=== PATIENT | female | born 1955 | race African-American/Black ===

== ENCOUNTER 2018-03-20 13:31 | Observation (INO) ==
[2018-03-20] MEDS ORDERED: Acetaminophen/Codeine 300/30 MG Tablet PO ONE (14:27)
[2018-03-20] MEDS ORDERED: Sodium Chlor 0.9% Inj 500 ML IV.SIG ONE (14:27)
--- NOTE | 2018-03-20 14:48 | XR ---
EXAM DATE: 03/20/2018 2:44 PM EDT AGE/SEX: 62 years / Female INDICATIONS: Pain in chest, back and neck for 4 days, general weakness CLINICAL DATA: This is the patient's initial encounter. Patient reports that signs and symptoms have been present for 4 - 6 days and indicates a pain score of 5/10. MEDICAL/SURGICAL HISTORY: None. None. [place] [facility] [place]. . FINDINGS: A single AP view of the chest demonstrates the lungs to be symmetrically aerated without evidence of mass, infiltrate or effusion. The cardiomediastinal contours are unremarkable. Convexity along the a scending aorta. Osseous structures are intact. CONCLUSION: Convexity along the ascending aorta. Could be tortuous thoracic aorta. Cannot exclude aneurysm. Contr asted CT chest may be warranted. Electronically signed by: Guru Mahajan MD 03/20/2018 2:47 PM EDT
[2018-03-20 14:55] LABS: Baso # (Auto) 0.1 th/mm3 (0.0-0.2); Baso % (Auto) 1.2 % (0.0-2.0); Eos % (Auto) 0.5 % (0.0-4.0); Hematocrit 36.8 % (35.0-46.0); Hemoglobin 12.8 gm/dL (11.6-15.3); Lymph # (Auto) 3.4 th/mm3 (1.0-4.8); Lymph % (Auto) 56.4 % (9.0-44.0); Mean Corpuscular HGB Conc 34.8 % (32.0-36.0); Mean Corpuscular Hemoglobin 31.2 pg (27.0-34.0); Mean Corpuscular Volume 89.6 fL (80.0-100.0); Mean Platelet Volume 7.4 fL (7.0-11.0); Mono # (Auto) 0.3 th/mm3 (0.0-0.9); Mono % (Auto) 5.1 % (0.0-8.0); Neut # (Auto) 2.2 th/mm3 (1.8-7.7); Neut % (Auto) 36.8 % (16.0-70.0); Platelet Count 308 th/mm3 (150-450); Red Blood Count 4.11 mil/mm3 (4.00-5.30); Red Cell Distribution Width 13.6 % (11.6-17.2); White Blood Count 5.9 th/mm3 (4.0-11.0)
--- NOTE | 2018-03-20 15:00 | ED ---
HPI General Chief Complaint: Chest Pain Stated Complaint: General Weakness Time Seen by Provider: 03/20/18 13:52 Source: patient Mode of arrival: ambulatory Limitations: no limitations History of Present Illness HPI narrative: Patient is a 62-year-old female presenting to emerge from for evaluation of chest pain. Patient states her symptoms started Monday when she was walking on the street, she states she became very hot and started perspiring. She walked across the street to the bus stop and sit down. She got on the bus and the hr business partner gave her water and turned the air down. Chest pain persisted, patient did not seek medical attention at that time. She states that she went home he continued to drink water. She reports the chest pain is midsternal, no radiation. She reports that her legs feel weak. She states that she tried to lay hands on herself like she tells other people to do to heal herself but this did not improve her symptoms. Patient states that she has been able to maneuver in the spirit world but the leg weakness is impairing her movement in this world. Patient denies any nausea, vomiting, fever, chills , nasal congestion, cough, abdominal pain. She currently reports the chest pain is a 4 out of 10, she denies shortness of breath but states her breathing is off. Patient's past medical history is significant for toxic water poisoning at [facility] 30 years ago. Patient states this is still affecting her grandchildren. complaint: chest pain Complete Quality Measures for STEMI Alert Patients STEMI Alert: No Onset (ago): day(s) (4) Duration: constant Onset: during exertion Pain location: substernal Severity: moderate Severity scale (1-10): 4 Quality: aching Pain radiation: none Relieving factors: nothing Exacerbating factors: nothing Associated symptoms: diaphoresis Treatments prior to arrival chest pain: none Related Data On Oral Contraceptives: No Home Medications Medication Instructions Recorded Confirmed No Known Home Medications 03/20/18 03/20/18 Allergies Allergy/AdvReac Type Severity Reaction Status Date / Time aspirin Allergy Severe RASH Unverified 09/12/17 03:29 amoxicillin AdvReac Intermediate Diarrhea Unverified 09/12/17 03:29 Review of Systems ROS: all other systems reviewed are negative [facility] Medical History Medical History Arthritis (Acute) Ataxia (Acute) Chronic back pain (Acute) Head injury (Acute) Hypertension (Acute) Hypokalemia (Acute) Renal calculi (Acute) Seizure disorder (Acute) Surgical History Surgical History H/O tubal ligation (Acute) History of 2 sections (Acute) Social History Social History Substance History: No History of Abuse Second Hand Smoke Exposure: No Smoking Status: Current every day smoker Tobacco Type: Cigarettes How Often Do You Have a Drink Containing Alcohol: Never Recent Travel in [facility] within the Last 8 Weeks: No Recent Out of Country Travel within the Last 8 Weeks: No Immunization History Tetanus Immunization: Unsure Exam Narrative Exam Narrative: GENERAL: Thin, well-developed, alert -[place] female. Presenting in no acute distress. SKIN: Focused skin assessment warm/dry. HEAD: Atraumatic. Normocephalic. EYES: Pupils equal and round. No scleral icterus. No injection or drainage. ENT: No nasal bleeding or discharge. Mucous membranes pink and moist. NECK: Trachea midline. No JVD. CARDIOVASCULAR: Regular rate and rhythm. No murmur appreciated. RESPIRATORY: No accessory muscle use. Clear to auscultation. Breath sounds equal bilaterally. GASTROINTESTINAL: Abdomen soft, non-tender, nondistended. Hepatic and splenic margins not palpable. MUSCULOSKELETAL: No obvious deformities. No clubbing. No cyanosis. No edema. NEUROLOGICAL: Awake and alert. No obvious cranial nerve deficits. Motor grossly within normal limits. Normal speech. PSYCHIATRIC: Appropriate mood and affect; insight and judgment normal. Course Initial Documented Vital Signs Temperature 98.4 F 03/20/18 13:40 Pulse Rate 87 03/20/18 13:40 Respiratory Rate 18 03/20/18 13:40 Blood Pressure 164/83 H 03/20/18 13:40 Pulse Oximetry 99 03/20/18 13:40 Last Documented Vital Signs Temperature 97.8 F 03/21/18 04:00 Pulse Rate 64 03/21/18 04:00 Respiratory Rate 19 03/21/18 04:00 Blood Pressure 112/68 03/21/18 04:00 Pulse Oximetry 97 03/21/18 04:42 Medical Decision Making MDM Narrative Medical decision making narrative: Patient is a 62-year-old female presenting for evaluation of chest pain and weakness. Patient's vital signs are stable, labs and imaging ordered and pending. Patient was placed on telemetry monitoring continuous pulse oximetry. EKG was reviewed by my attending physician. It shows sinus rhythm with short NH interval, nonspecific T-wave abnormality. No STEMI. Labs reviewed, potassium level 3.1, oral replacement ordered. Cardiac enzymes are negative [address] a of the aorta shows an aortic aneurysm, no dissection. Patient will be placed in chest pain center for further evaluation. Patient is agreeable to plan. Medical Screen Exam Complete: Yes Emergency Medical Condition: Yes Differential Diagnosis Differential Diagnosis: ACS versus metabolic abnormality versus pneumonia versus [place] versus other Medical Records Medical records reviewed: Yes I reviewed the patient's medical records. Lab Data Lab results reviewed: Yes I reviewed the patient's lab results. Result diagrams: 03/20/18 14:30 03/20/18 14:30 Lab Results 03/20/18 03/20/18 03/20/18 Range/Units 14:30 14:30 14:30 WBC 5.9 (4.0-11.0) th/mm3 RBC 4.11 (4.00-5.30) mil/mm3 Hgb 12.8 (11.6-15.3) gm/dL Hct 36.8 (35.0-46.0) % MCV 89.6 (80.0-100.0) fL MCH 31.2 (27.0-34.0) pg MCHC 34.8 (32.0-36.0) % RDW 13.6 (11.6-17.2) % Plt Count 308 (150-450) th/mm3 MPV 7.4 (7.0-11.0) fL Neut % (Auto) 36.8 (16.0-70.0) % Lymph % (Auto) 56.4 H (9.0-44.0) % Bureau % (Auto) 5.1 (0.0-8.0) % Eos % (Auto) 0.5 (0.0-4.0) % Baso % (Auto) 1.2 (0.0-2.0) % Neut # (Auto) 2.2 (1.8-7.7) th/mm3 Lymph # (Auto) 3.4 (1.0-4.8) th/mm3 Bureau # (Auto) 0.3 (0.0-0.9) th/mm3 Eos # (Auto) 0.0 (0.0-0.4) th/mm3 Baso # (Auto) 0.1 (0.0-0.2) th/mm3 WBC Differential . Differential Comment Auto diff final PT 10.6 (9.8-11.6) sec INR 1.0 Ratio APTT 25.0 (24.3-30.1) sec Sodium 143 (136-145) meq/L Potassium 3.1 L (3.5-5.1) meq/L Chloride 106 (98-107) meq/L Carbon Dioxide 27.2 (21.0-32.0) meq/L Anion Gap 10 (5-15) meq/L BUN 7 (7-18) mg/dL Creatinine 0.68 (0.50-1.00) mg/dL Estimated GFR Greater than 89 (>89) mL/min Random Glucose 84 (74-106) mg/dL Calcium 9.0 (8.5-10.1) mg/dL Magnesium (1.5-2.5) mg/dL Total Bilirubin 0.3 (0.2-1.0) mg/dL AST 16 (15-37) U/L ALT 17 (10-53) U/L Alkaline Phosphatase 88 (45-117) U/L Total Creatine Kinase (26-192) U/L CK-MB (CK-2) (0.5-3.6) ng/mL Troponin I Less than 0.02 L (0.02-0.05) ng/mL Total Protein 7.7 (6.4-8.2) g/dL Albumin 3.7 (3.4-5.0) g/dL Lipase 79 (73-393) U/L Urine Color (Yellw/Straw) Urine Clarity (Clear) Urine pH (5.0-8.5) Ur Specific Hazel (1.002-1.035) Urine Protein (Neg-Trace) mg/dL Urine Glucose (UA) (Negative) mg/dL Urine Ketones (Negative) mg/dL Urine Occult Blood (Negative) Urine Nitrate (Negative) Urine Bilirubin (Negative) Urine Urobilinogen (Less than 2) mg/dL Ur Leukocyte Esterase (Negative) Urine RBC (0-3) /hpf Urine WBC (0-5) /hpf Ur Squamous Epith Cells (0-5) /hpf Micro UA Comment Ur Microscopic Review Urine Culture Comments 03/20/18 03/20/18 03/20/18 Range/Units 14:30 17:50 18:40 WBC (4.0-11.0) th/mm3 RBC (4.00-5.30) mil/mm3 Hgb (11.6-15.3) gm/dL Hct (35.0-46.0) % MCV (80.0-100.0) fL MCH (27.0-34.0) pg MCHC (32.0-36.0) % RDW (11.6-17.2) % Plt Count (150-450) th/mm3 MPV (7.0-11.0) fL Neut % (Auto) (16.0-70.0) % Lymph % (Auto) (9.0-44.0) % Bureau % (Auto) (0.0-8.0) % Eos % (Auto) (0.0-4.0) % Baso % (Auto) (0.0-2.0) % Neut # (Auto) (1.8-7.7) th/mm3 Lymph # (Auto) (1.0-4.8) th/mm3 Bureau # (Auto) (0.0-0.9) th/mm3 Eos # (Auto) (0.0-0.4) th/mm3 Baso # (Auto) (0.0-0.2) th/mm3 WBC Differential Differential Comment PT (9.8-11.6) sec INR Ratio APTT (24.3-30.1) sec Sodium (136-145) meq/L Potassium (3.5-5.1) meq/L Chloride (98-107) meq/L Carbon Dioxide (21.0-32.0) meq/L Anion Gap (5-15) meq/L BUN (7-18) mg/dL Creatinine (0.50-1.00) mg/dL Estimated GFR (>89) mL/min Random Glucose (74-106) mg/dL Calcium (8.5-10.1) mg/dL Magnesium 2.1 (1.5-2.5) mg/dL Total Bilirubin (0.2-1.0) mg/dL AST (15-37) U/L ALT (10-53) U/L Alkaline Phosphatase (45-117) U/L Total Creatine Kinase 146 134 (26-192) U/L CK-MB (CK-2) 1.5 (0.5-3.6) ng/mL Troponin I 0.02 (0.02-0.05) ng/mL Total Protein (6.4-8.2) g/dL Albumin (3.4-5.0) g/dL Lipase (73-393) U/L Urine Color Colorless (Yellw/Straw) Urine Clarity Clear (Clear) Urine pH 7.0 (5.0-8.5) Ur Specific Hazel 1.033 (1.002-1.035) Urine Protein Negative (Neg-Trace) mg/dL Urine Glucose (UA) Negative (Negative) mg/dL Urine Ketones Negative (Negative) mg/dL Urine Occult Blood Small H (Negative) Urine Nitrate Negative (Negative) Urine Bilirubin Negative (Negative) Urine Urobilinogen Less than 2 (Less than 2) mg/dL Ur Leukocyte Esterase Negative (Negative) Urine RBC 1 (0-3) /hpf Urine WBC Less than 1 (0-5) /hpf Ur Squamous Epith Cells <1 (0-5) /hpf Micro UA Comment Culture not ind Ur Microscopic Review Not Reportable Urine Culture Comments Culture not ind 03/20/18 Range/Units 22:00 WBC (4.0-11.0) th/mm3 RBC (4.00-5.30) mil/mm3 Hgb (11.6-15.3) gm/dL Hct (35.0-46.0) % MCV (80.0-100.0) fL MCH (27.0-34.0) pg MCHC (32.0-36.0) % RDW (11.6-17.2) % Plt Count (150-450) th/mm3 MPV (7.0-11.0) fL Neut % (Auto) (16.0-70.0) % Lymph % (Auto) (9.0-44.0) % Bureau % (Auto) (0.0-8.0) % Eos % (Auto) (0.0-4.0) % Baso % (Auto) (0.0-2.0) % Neut # (Auto) (1.8-7.7) th/mm3 Lymph # (Auto) (1.0-4.8) th/mm3 Bureau # (Auto) (0.0-0.9) th/mm3 Eos # (Auto) (0.0-0.4) th/mm3 Baso # (Auto) (0.0-0.2) th/mm3 WBC Differential Differential Comment PT (9.8-11.6) sec INR Ratio APTT (24.3-30.1) sec Sodium (136-145) meq/L Potassium (3.5-5.1) meq/L Chloride (98-107) meq/L Carbon Dioxide (21.0-32.0) meq/L Anion Gap (5-15) meq/L BUN (7-18) mg/dL Creatinine (0.50-1.00) mg/dL Estimated GFR (>89) mL/min Random Glucose (74-106) mg/dL Calcium (8.5-10.1) mg/dL Magnesium (1.5-2.5) mg/dL Total Bilirubin (0.2-1.0) mg/dL AST (15-37) U/L ALT (10-53) U/L Alkaline Phosphatase (45-117) U/L Total Creatine Kinase 144 (26-192) U/L CK-MB (CK-2) (0.5-3.6) ng/mL Troponin I 0.03 (0.02-0.05) ng/mL Total Protein (6.4-8.2) g/dL Albumin (3.4-5.0) g/dL Lipase (73-393) U/L Urine Color (Yellw/Straw) Urine Clarity (Clear) Urine pH (5.0-8.5) Ur Specific Hazel (1.002-1.035) Urine Protein (Neg-Trace) mg/dL Urine Glucose (UA) (Negative) mg/dL Urine Ketones (Negative) mg/dL Urine Occult Blood (Negative) Urine Nitrate (Negative) Urine Bilirubin (Negative) Urine Urobilinogen (Less than 2) mg/dL Ur Leukocyte Esterase (Negative) Urine RBC (0-3) /hpf Urine WBC (0-5) /hpf Ur Squamous Epith Cells (0-5) /hpf Micro UA Comment Ur Microscopic Review Urine Culture Comments Imaging Data Radiologist's impression: Chest X-Ray 03/20/18 14:27 CONCLUSION: Convexity along the ascending aorta. Could be tortuous thoracic aorta. Cannot exclude aneurysm. Contrasted CT chest may be warranted. Thoracic Aorta CT 03/20/18 14:49 CONCLUSION: 1. Mild aneurysmal dilatation of the aspect ascending thoracic aorta measuring 4.0 x 3.9 cm. 2. Atherosclerotic changes are seen throughout the thoracic and abdominal aorta. No evidence of aortic dissection. 3. Multiple gallstones in the gallbladder. No biliary tract obstruction. Discharge Plan Discharge Disposition Patient Disposition: 30 Still Patient Discharge Condition Condition: Good Discharge Details Diagnosis: Atypical chest pain, Aortic aneurysm Physicians Team ED Provider: Magaly Parham ED Midlevel Provider: Brandi Thomas Primary Care Provider: Primary Care Keysha Branch Attending Provider: Gaye Ny Other Providers: [facility],Insurance Status ED Status: Left Department Discharge Information Discharge Date/Time: 03/20/18 19:06
[2018-03-20 15:13] LABS: Prothrombin Time 10.6 sec (9.8-11.6)
[2018-03-20 15:46] LABS: Magnesium 2.1 mg/dL (1.5-2.5)
[2018-03-20 15:47] LABS: Alanine Aminotransferase 17 U/L (10-53); Albumin 3.7 g/dL (3.4-5.0); Anion Gap 10 meq/L (5-15); Aspartate Aminotransferase 16 U/L (15-37); Blood Urea Nitrogen 7 mg/dL (7-18); Carbon Dioxide 27.2 meq/L (21.0-32.0); Chloride 106 meq/L (98-107); Glomerular Filtration Rate Greater Than 89 mL/min (>89); Glucose,Random 84 mg/dL (74-106); Lipase 79 U/L (73-393); Potassium 3.1 meq/L (3.5-5.1); Sodium 143 meq/L (136-145)
[2018-03-20 15:48] LABS: Creatine Kinase 146 U/L (26-192)
[2018-03-20 15:50] LABS: Alkaline Phosphatase 88 U/L (45-117); Total Protein 7.7 g/dL (6.4-8.2)
[2018-03-20 16:13] LABS: Creatine Kinase MB 1.5 ng/mL (0.5-3.6)
--- NOTE | 2018-03-20 16:57 | CT ---
EXAM DATE: 03/20/2018 4:51 PM EDT AGE/SEX: 62 years / Female INDICATIONS: Chest pain and Dizziness light headedness since Monday. CLINICAL DATA: This is the patient's initial encounter. Patient reports that signs and symptoms have been present for 4 - 6 days and indicates a pain score of 5/10. MEDICAL/SURGICAL HISTORY: None. None. RADIATION DOSE: 14.12 CTDI (mGy) COMPARISON: No prior exams available for comparison. No external comparison. TECHNIQUE: Volumetric scanning was performed using a multi-row detector CT scanner during bolus infu aaliyah of omni ml Omnipaque 350 (iohexol) nonionic water-soluble contrast as a single exam dose. The data was post processed with a variety of visualization algorithms including full volume maximum inte nsity projection, multi-planar sliding thin slab reformation, curved planar reformation, and surface rendering techniques. Using automated exposure control and adjustment of the mA and/or kV according to patient size, radiation dose was kept as low as reasonably achievable to obtain optimal diagnostic quality images. DICOM format image data is available electronically for review and comparison. FINDINGS: Lungs: There is no consolidation or pneumothorax. No concerning pulmonary nodule is visualized. No pleural fluid is present. Mediastinum: No abnormally enlarged lymph nodes by CT criteria. No axillary or hilar abnormalities a re identified. Abdomen: The liver and spleen are free of focal defects. Multiple stones in the gallbladder. No surr ounding inflammatory changes. The pancreas demonstrate no abnormality. The adrenal glands are normal. The kidneys demonstrate no evidence of solid renal mass or hydronephrosis. No free fluid or abdomina l masses are identified. No para-aortic adenopathy is seen. Pelvis: No evidence of free fluid or pelvic mass. No abnormally enlarged inguinal or retroperitoneal lymph nodes are present. The bladder is unremarkable. Thoracic Aorta: There is some atherosclerotic changes of the thoracic aorta. Normal three-vessel arc h with no evidence of any focal stenosis. There is some mild aneurysmal dilatation of the asthenic th oracic aorta measuring 4.0 x 3.9 cm. There is no evidence of dissection. Abdominal Aorta: There is atherosclerotic changes throughout the abdominal aorta. No aortic dissecti on. No significant aneurysmal dilatation. The SMA, celiac and renal arteries are patent without evide nce of any focal or high-grade stenosis. Pelvic Vessels: There are atherosclerotic changes of the pelvic vessels. CONCLUSION: 1. Mild aneurysmal dilatation of the aspect ascending thoracic aorta measuring 4.0 x 3.9 cm. 2. Atherosclerotic changes are seen throughout the thoracic and abdominal aorta. No evidence of aort ic dissection. 3. Multiple gallstones in the gallbladder. No biliary tract obstruction. Electronically signed by: Jan Lopez MD 03/20/2018 4:56 PM EDT
[2018-03-20 18:27] LABS: Bilirubin,Urine Negative (Negative); Clarity,Urine Clear (Clear); Color,Urine Colorless (Yellw/Straw); Glucose,Urine (UA) Negative (Negative); Leukocyte Esterase,Urine Negative (Negative); Nitrite,Urine Negative (Negative); Specific Gravity,Urine 1.033 (1.002-1.035); Squamous Epithelial Cell,Urine <1 /hpf (0-5)
[2018-03-20] MEDS: Lisinopril 10 MG Tablet PO SCH (19:48)
[2018-03-20] MEDS: Morphine Inj 4 MG/ML Vial IV.PUSH PRN ×2 (19:49→23:29)
[2018-03-20 20:07] LABS: Troponin I 0.02 ng/mL (0.02-0.05)
[2018-03-20 23:27] LABS: Troponin I 0.03 ng/mL (0.02-0.05)
[2018-03-21] MEDS: Morphine Inj 4 MG/ML Vial IV.PUSH PRN (03:52)
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
[2018-03-21] MEDS ORDERED: Acetaminophen/Codeine 300/30 MG Tablet PO ONE (07:58)
[2018-03-21] MEDS ORDERED: Regadenoson Inj 0.4 MG/5 ML Syringe IV.PUSH ONE (09:13)
[2018-03-21] MEDS: Lisinopril 10 MG Tablet PO SCH (10:57)
--- NOTE | 2018-03-21 11:08 | NM ---
EXAM DATE: 03/21/2018 10:42 AM EDT AGE/SEX: 62 years / Female INDICATIONS:Angina. . Mid chest pain for one day. CLINICAL DATA: This is the patient's initial encounter. Patient reports that signs and symptoms have been present for 1 day and indicates a pain score of 2/10. MEDICAL/SURGICAL HISTORY: None. None. COMPARISON: No prior exams available for comparison. No external comparison. DOSE: 8.7 mCi Tc 99m Myoview at rest 26.3 mCi [id number] at stress 0.4 mg Lexiscan STRESS SYMPTOMS: None. EJECTION FRACTION: 70 % TECHNIQUE: The patient underwent pharmacologic stress with infusion of prescribed dose. Continuous ECG tracing was monitored during stress. Gated SPECT imaging was performed after stress and conventi onal SPECT imaging was performed at rest. The examination was performed on a SPECT/CT scanner, both attenuation and non-corrected datasets were reviewed. FINDINGS: Distribution: The maximum perfused segment at stress is in the wall. Perfusion Study: The pattern of perfusion at stress is within normal limits. No reversible perfus ion defects are identified. There is a small fixed perfusion defect at the apex identified. Gated Study: There are intact wall motion and wall thickening without hypokinetic or dyskinetic segm ents. The ejection fraction is calculated at 70%. RISK CATEGORY: Low (<1% Annual Motality Rate) CONCLUSION: 1. No definite reversible perfusion defects are identified to suggest stress-induced myocardial isch emia. Electronically signed by: Rich Pastrana MD 03/21/2018 11:07 AM EDT
--- NOTE | 2018-03-21 12:53 | ECG ---
Date Performed: 03/20/2018 Time Performed: 18:40:39 PTAGE: 62 years EKG: Sinus rhythm MODERATE T-WAVE ABNORMALITY, CONSIDER ANTERIOR ISCHEMIA ABNORMAL ECG PREVIOUS TRACING : 03/20/2018 14.03 Since previous tracing, no significant change noted DOCTOR: Win Rodriguez Interpretating Date/Time 03/21/2018 12:52:43
--- NOTE | 2018-03-21 12:53 | ECG ---
Date Performed: 03/20/2018 Time Performed: 21:43:43 PTAGE: 62 years EKG: Sinus rhythm NORMAL ECG PREVIOUS TRACING : 03/20/2018 19.24 Since previous tracing, no significant change noted DOCTOR: Win Rodriguez Interpretating Date/Time 03/21/2018 12:52:11
--- NOTE | 2018-03-21 12:53 | ECG ---
Date Performed: 03/20/2018 Time Performed: 19:24:08 PTAGE: 62 years EKG: Sinus rhythm MODERATE T-WAVE ABNORMALITY, CONSIDER ANTERIOR ISCHEMIA ABNORMAL ECG PREVIOUS TRACING : 03/20/2018 14.03 Since previous tracing, no significant change noted DOCTOR: Win Rodriguez Interpretating Date/Time 03/21/2018 12:52:28
--- NOTE | 2018-03-21 12:56 | ECG ---
Date Performed: 03/20/2018 Time Performed: 14:03:40 PTAGE: 62 years EKG: Sinus rhythm WITH SHORT MD INTERVAL NONSPECIFIC T-WAVE ABNORMALITY BORDERLINE ECG NO PREVIOUS TRACING DOCTOR: Win Rodriguez Interpretating Date/Time 03/22/2018 06:47:52
--- NOTE | 2018-03-21 13:00 | TR ---
Date Performed: 03/21/2018 Time Performed: 09:18:47 DOCTOR: Win Rodriguez DRUG LIST: CLINICAL HISTORY: REASON FOR TEST: REASON FOR ENDING: OBSERVATION: CONCLUSION: COMMENTS: Lexiscan stress test was performed under standard four minute protocol. Radionuclide was injected one minute prior to ending the test. No electrocardiographic abormalities were present t o suggest ischemia. Nuclear imaging and interpretation are pending.
== END 2018-03-21 12:00 | disposition home or self-care (01) ==
LOC: NEDA 13:31 → NEPE 13:31 → NEPGCP 18:40
PROVIDERS: ADMIT Internal Medicine Interventional Cardiology; ATTEND Internal Medicine Interventional Cardiology
DX: N20.0 Calculus of kidney; R07.89 Other chest pain; R27.0 Ataxia, unspecified; R53.1 Weakness; G40.909 Epilepsy, unspecified, not intractable, without status epilepticus; M19.90 Unspecified osteoarthritis, unspecified site; I10 Essential (primary) hypertension; R94.39 Abnormal result of other cardiovascular function study; E87.6 Hypokalemia; F17.210 Nicotine dependence, cigarettes, uncomplicated; Z87.442 Personal history of urinary calculi; R61 Generalized hyperhidrosis; I71.9 Aortic aneurysm of unspecified site, without rupture; G89.29 Other chronic pain